=== PATIENT | female | born 1970 | race Caucasian/White ===

== ENCOUNTER → 2023-10-18 | Emergency (ER) | payer OTHER ==
[~2023-10-18] VITALS: Ht 157.5 cm; Wt 117.0 kg
[~2023-10-18] MED LIST: IBUP-2029 MT; KETOROLAC 30MG/ML VIAL IM ONE; METH-653 MT; METHOCARBAMOL 500MG TABLET PO ONE
[2023-10-18 08:08] VITALS: BP 138/94; PULSE 61; RESP 16; TEMP 98.1; O2SAT 100
[2023-10-18 08:28] LABS: BASOPHILS % 0.3 % (0.0-2.0); EOSINOPHILS % 2.4 % (0.0-5.0); HEMATOCRIT. 44.1 % (36.0-48.0); HEMOGLOBIN. 15.2 g/dL (12.0-16.0); LYMPHOCYTES % 31.5 % (20.0-50.0); MEAN CORPUSCULAR HEMOGLOBIN 31.2 pg (28.0-32.0); MEAN CORPUSCULAR HGB CONC 34.5 g/dL (31.0-37.0); MEAN CORPUSCULAR VOLUME 90.4 fL (81.0-99.0); MEAN PLATELET VOLUME 7.9 fl (7.4-10.4); MONOCYTES % 7.6 % (2.0-8.0); NEUTROPHILS % 58.2 % (40.0-76.0); PLATELET 270 x1000/uL (130-400); RED BLOOD CELL COUNT 4.88 mill/uL (4.2-5.4); RED CELL DISTRIBUTION WIDTH 14.2 % (11.6-14.6)
[2023-10-18 08:33] LABS: CHLORIDE 108 mEq/L (98-107); POTASSIUM 4.9 mEq/L (3.5-5.1); SODIUM 138 mEq/L (136-145)
[2023-10-18 08:34] LABS: CARBON DIOXIDE 28 mEq/L (21-32)
[2023-10-18 08:35] LABS: CALCIUM 9.7 mg/dL (8.7-10.4)
[2023-10-18 08:39] LABS: CREATININE 0.7 mg/dL (0.6-1.0); GLUCOSE 118 mg/dL (70-105); UREA NITROGEN BLOOD 13 mg/dL (9-23)
[2023-10-18 10:11] LABS: CLARITY URINE CLEAR (CLEAR); COLOR URINE YELLOW (YELLOW); GLUCOSE URINE NEGATIVE (NEGATIVE); KETONES URINE NEGATIVE (NEGATIVE); LEUKOCYTE ESTERASE URINE 1+ (NEGATIVE); NITRITE URINE NEGATIVE (NEGATIVE); OCCULT BLOOD URINE 1+ (NEGATIVE); PH URINE 5.5 (4.5-8.0); PROTEIN URINE NEGATIVE (NEGATIVE); SPECIFIC GRAVITY URINE 1.021 (1.005-1.030); UROBILINOGEN URINE 0.2 E.U./dL (0.2-1.0)
[2023-10-18] MEDS: METHOCARBAMOL 500MG TABLET PO NR (10:24)
[2023-10-18] MEDS: KETOROLAC 30MG/ML VIAL IM NR (10:24)
[2023-10-18 10:33] LABS: BACTERIA URINE 2+; SQUAMOUS EPITHELIAL CELL URINE 3+ /lpf (RARE/1+)
[2023-10-18 10:34] LABS: WBC URINE 0-2 /hpf (0-2)
== END ==
LOC: ER 09:37
DX: S33.5XXA Sprain of ligaments of lumbar spine, initial encounter (principal); R31.9 Hematuria, unspecified; X58.XXXA Exposure to other specified factors, initial encounter; Y93.89 Activity, other specified; Y92.89 Other specified places as the place of occurrence of the external cause; Y99.8 Other external cause status
CPT/HCPCS: 99284; 80048; 81003; 85025; 36415; 93005; 96372; J1885